=== PATIENT | female | born 1930 | race African-American/Black ===

== ENCOUNTER 2021-04-02 00:57 | Inpatient (IN) | payer MEDICARE, MEDICAID ==
[2021-04-02] VITALS (46 sets, daily range): BP systolic 73–138; BP diastolic 43–104
[~2021-04-02] VITALS: Ht 167.6 cm; Wt 100.9 kg
[~2021-04-02 00:57] MED LIST: APIX5TAB MT; ATOR40TA70 MT; CETI10TA6 MT; FAMO20TA8 PO; NITR0.4T49 SL; P20 MT; RISP4TAB31 PO
[2021-04-02] MEDS ORDERED: METHYLPREDNISOLONE SOD SUCC 125 MG/2 ML VIAL IV STA (01:01)
[2021-04-02] MEDS ORDERED: IPRATROPIUM BROMIDE (0.02%) 0.5MG/2.5ML NEB HHN STA (01:01)
[2021-04-02] MEDS ORDERED: MAGNESIUM 2 G PREMIX 50 ML IV STA (01:01)
[2021-04-02] MEDS ORDERED: ALBUTEROL (0.083%) 2.5MG/3ML NEB HHN STA (01:01)
[2021-04-02] MEDS ORDERED: DILTIAZEM HCL 5MG/ML 5ML VIAL IV ONE (01:15)
[2021-04-02] MEDS ORDERED: SODIUM CHLORIDE 0.9% 1,000 ML IV ONE (01:15)
[2021-04-02 01:16] LABS: HEMOGLOBIN 12.5 g/dL (12.0-16.0); MEAN CORPUSCULAR HEMOGLOBIN 27.2 pg (28.0-32.0); MEAN CORPUSCULAR VOLUME 86.6 fL (81.0-99.0); PLATELET 191 x1000/uL (130-400); RED BLOOD CELL COUNT 4.61 mill/uL (4.2-5.4); RED CELL DISTRIBUTION WIDTH 15.3 % (11.6-14.6)
[2021-04-02 01:21] LABS: CHLORIDE 106 mEq/L (98-107)
[2021-04-02] MEDS ORDERED: CEFTRIAXONE 1 G PREMIX 50 ML IV NR (01:30)
[2021-04-02] MEDS ORDERED: AZITHROMYCIN 500 MG in DEXT 5% WATER 250 ML IV SCH (02:00)
[2021-04-02] MEDS ORDERED: SODIUM CHLORIDE 0.9% 1,000 ML IV NR ×2 (02:15→14:45)
[2021-04-02] MEDS ORDERED: DOCUSATE SODIUM 100MG CAPSULE PO PRN (03:45)
[2021-04-02] MEDS ORDERED: NITROGLYCERIN 0.4MG TABLET SL SL PRN (03:45)
[2021-04-02] MEDS ORDERED: ACETAMINOPHEN 325MG TABLET PO PRN (03:45)
[2021-04-02] MEDS ORDERED: PIPERACILLIN/TAZ 3.375G PREMIX 50 ML IV SCH (03:45)
[2021-04-02] MEDS ORDERED: IPRATROPIUM/ALBUTEROL 0.5-3(2.5)MG/3ML NEB HHN PRN (03:45)
[2021-04-02] MEDS ORDERED: ENOXAPARIN 40MG/0.4ML SYR SUBCUT SCH (03:45)
[2021-04-02] MEDS ORDERED: LISI10TA26 MT (04:26)
[2021-04-02 04:30] LABS: BASOPHILS % 0.3 % (0.0-2.0); EOSINOPHILS % 0.1 % (0.0-5.0); HEMATOCRIT. 38.1 % (36.0-48.0); HEMOGLOBIN. 11.6 g/dL (12.0-16.0); LYMPHOCYTES % 11.7 % (20.0-50.0); MEAN CORPUSCULAR HEMOGLOBIN 26.8 pg (28.0-32.0); MEAN PLATELET VOLUME 9.9 fl (7.4-10.4); MONOCYTES % 6.5 % (2.0-8.0); NEUTROPHILS % 81.4 % (40.0-76.0); PLATELET 156 x1000/uL (130-400); RED BLOOD CELL COUNT 4.34 mill/uL (4.2-5.4); RED CELL DISTRIBUTION WIDTH 15.3 % (11.6-14.6)
[2021-04-02] MEDS ORDERED: *PATIENT'S OWN MEDICATION STORAGE XX SCH (05:00)
[2021-04-02 05:02] LABS: BG BASE EXCESS -0.4 mmol/L (-2.0-2.0); BG CARBOXYHEMOGLOBIN 0.3 % (0.5-1.5); BG DEOXYHEMOGLOBIN 0.6 % (0.0-5.0); BG FRACTION INSPIRED OXYGEN 100; BG HCO3 ACT 27.7 mmol/L (22.0-26.0); BG METHEMOGLOBIN 0.4 % (0.0-1.5); BG OXYGEN SATURATION 99.4 % (92.0-98.5); BG OXYHEMOGLOBIN 98.7 % (94.0-97.0); BG PH 7.261 (7.350-7.450); BG PO2 417.5 mmHg (75.0-100.0); BG SAMPLE SITE RIGHT RADIAL; BG TOTAL HEMOGLOBIN 11.9 g/dL (12.0-18.0); BG VENT MODE MASK - NRB
[2021-04-02] MEDS: METHYLPREDNISOLONE SOD SUCC 125 MG/2 ML VIAL IV SCH ×3 (05:56→22:23)
[2021-04-02] MEDS ORDERED: IPRATROPIUM/ALBUTEROL 0.5-3(2.5)MG/3ML NEB HHN SCH (08:00)
[2021-04-02] MEDS ORDERED: SODIUM CHLORIDE 0.9% 500 ML IV SCH ×2 (08:30→09:15)
[2021-04-02] MEDS: APIXABAN 2.5 MG TABLET PO SCH ×2 (09:27→17:14)
[2021-04-02] MEDS: FAMOTIDINE 20MG TABLET PO SCH (09:28)
[2021-04-02] MEDS: PIPERACILLIN/TAZOBACTAM 2.25 G in DEXTROSE 5% WATER 50 ML IV SCH ×3 (09:28→22:23)
[2021-04-02] MEDS: CETIRIZINE 10MG TABLET PO SCH (09:28)
[2021-04-02] MEDS: QUETIAPINE FUMARATE 50MG TABLET PO SCH (09:28)
[2021-04-02] MEDS ORDERED: DIGOXIN 500MCG/2ML AMP IV SCH (09:30)
[2021-04-02 09:33] LABS: BG BASE EXCESS -0.8 mmol/L (-2.0-2.0); BG CARBOXYHEMOGLOBIN 0.3 % (0.5-1.5); BG DEOXYHEMOGLOBIN 2.2 % (0.0-5.0); BG HCO3 ACT 26.2 mmol/L (22.0-26.0); BG METHEMOGLOBIN 0.6 % (0.0-1.5); BG OXYGEN SATURATION 97.8 % (92.0-98.5); BG OXYHEMOGLOBIN 96.9 % (94.0-97.0); BG PCO2 53.8 mmHg (35.0-45.0); BG PH 7.305 (7.350-7.450); BG PO2 114.6 mmHg (75.0-100.0); BG SAMPLE SITE RIGHT BRACHIAL; BG TOTAL HEMOGLOBIN 12.2 g/dL (12.0-18.0); BG VENT MODE MASK - BIPAP
[2021-04-02] MEDS: IPRATROPIUM BROMIDE (0.02%) 0.5MG/2.5ML NEB HHN SCH ×4 (11:53→21:03)
[2021-04-02] MEDS ORDERED: FLUT1BLS INH (12:18)
[2021-04-02] MEDS ORDERED: TIOT18CA3 INH (12:21)
[2021-04-02 15:38] LABS: BG BASE EXCESS -2.4 mmol/L (-2.0-2.0); BG CARBOXYHEMOGLOBIN 0.3 % (0.5-1.5); BG DEOXYHEMOGLOBIN 6.5 % (0.0-5.0); BG HCO3 ACT 24.8 mmol/L (22.0-26.0); BG METHEMOGLOBIN 0.3 % (0.0-1.5); BG OXYGEN SATURATION 93.5 % (92.0-98.5); BG OXYHEMOGLOBIN 92.9 % (94.0-97.0); BG PCO2 53.8 mmHg (35.0-45.0); BG PH 7.282 (7.350-7.450); BG PO2 74.8 mmHg (75.0-100.0); BG SAMPLE SITE RIGHT BRACHIAL; BG TOTAL HEMOGLOBIN 11.4 g/dL (12.0-18.0); BG VENT MODE ROOM AIR
[2021-04-02 15:56] LABS: CLARITY URINE CLEAR (CLEAR); COLOR URINE YELLOW (YELLOW); KETONES URINE NEGATIVE (NEGATIVE); LEUKOCYTE ESTERASE URINE NEGATIVE (NEGATIVE); NITRITE URINE NEGATIVE (NEGATIVE); OCCULT BLOOD URINE NEGATIVE (NEGATIVE); PROTEIN URINE TRACE (NEGATIVE); SPECIFIC GRAVITY URINE 1.019 (1.005-1.030); UROBILINOGEN URINE 0.2 E.U./dL (0.2-1.0)
[2021-04-02] MEDS: LEVOTHYROXINE SODIUM 25MCG TABLET PO SCH (17:22)
[2021-04-02] MEDS: ATORVASTATIN CALCIUM 40MG TABLET PO SCH (21:43)
[2021-04-03] VITALS (49 sets, daily range): BP systolic 52–162; BP diastolic 28–96
[2021-04-03] MEDS: IPRATROPIUM BROMIDE (0.02%) 0.5MG/2.5ML NEB HHN SCH ×6 (00:55→21:10)
[2021-04-03 05:20] LABS: HEMATOCRIT. 32.5 % (36.0-48.0); HEMOGLOBIN. 10.1 g/dL (12.0-16.0); MEAN CORPUSCULAR HEMOGLOBIN 26.9 pg (28.0-32.0); MEAN CORPUSCULAR VOLUME 87.1 fL (81.0-99.0); MEAN PLATELET VOLUME 10.1 fl (7.4-10.4); PLATELET 139 x1000/uL (130-400); RED BLOOD CELL COUNT 3.74 mill/uL (4.2-5.4); RED CELL DISTRIBUTION WIDTH 15.7 % (11.6-14.6)
[2021-04-03 05:43] LABS: T4 FREE 0.86 ng/dL (0.76-1.46)
[2021-04-03] MEDS: PIPERACILLIN/TAZOBACTAM 2.25 G in DEXTROSE 5% WATER 50 ML IV SCH ×4 (06:37→23:53)
[2021-04-03] MEDS: LEVOTHYROXINE SODIUM 25MCG TABLET PO SCH (06:38)
[2021-04-03] MEDS: METHYLPREDNISOLONE SOD SUCC 125 MG/2 ML VIAL IV SCH ×3 (06:43→22:00)
[2021-04-03 07:39] LABS: BG BASE EXCESS 1.3 mmol/L (-2.0-2.0); BG CARBOXYHEMOGLOBIN 0.3 % (0.5-1.5); BG DEOXYHEMOGLOBIN 5.2 % (0.0-5.0); BG HCO3 ACT 27.4 mmol/L (22.0-26.0); BG METHEMOGLOBIN 0.2 % (0.0-1.5); BG OXYGEN SATURATION 94.8 % (92.0-98.5); BG OXYHEMOGLOBIN 94.3 % (94.0-97.0); BG PCO2 50.8 mmHg (35.0-45.0); BG PO2 74.8 mmHg (75.0-100.0); BG SAMPLE SITE RIGHT BRACHIAL; BG TOTAL HEMOGLOBIN 10.4 g/dL (12.0-18.0); BG VENT MODE ROOM AIR
[2021-04-03] MEDS: CETIRIZINE 10MG TABLET PO SCH (10:02)
[2021-04-03] MEDS: QUETIAPINE FUMARATE 50MG TABLET PO SCH (10:02)
[2021-04-03] MEDS: FAMOTIDINE 20MG TABLET PO SCH (10:02)
[2021-04-03] MEDS: APIXABAN 2.5 MG TABLET PO SCH ×2 (10:02→17:38)
[2021-04-03 10:24] LABS: PLATELET ESTIMATE NORMAL
[2021-04-03] MEDS ORDERED: DILTIAZEM HCL 125 MG in DEXT 5% WATER 100 ML IV PRN (18:30)
[2021-04-03] MEDS: ATORVASTATIN CALCIUM 40MG TABLET PO SCH (21:20)
[2021-04-04] VITALS (48 sets, daily range): BP systolic 124–169; BP diastolic 54–142
[2021-04-04] MEDS: IPRATROPIUM BROMIDE (0.02%) 0.5MG/2.5ML NEB HHN SCH ×6 (01:20→20:45)
[2021-04-04] MEDS: METHYLPREDNISOLONE SOD SUCC 125 MG/2 ML VIAL IV SCH ×3 (06:30→22:07)
[2021-04-04] MEDS: PIPERACILLIN/TAZOBACTAM 2.25 G in DEXTROSE 5% WATER 50 ML IV SCH ×2 (06:30→13:30)
[2021-04-04] MEDS: LEVOTHYROXINE SODIUM 25MCG TABLET PO SCH (07:41)
[2021-04-04] MEDS: APIXABAN 2.5 MG TABLET PO SCH (08:37)
[2021-04-04] MEDS: CETIRIZINE 10MG TABLET PO SCH (08:37)
[2021-04-04] MEDS: QUETIAPINE FUMARATE 50MG TABLET PO SCH (08:37)
[2021-04-04] MEDS: FAMOTIDINE 20MG TABLET PO SCH (08:37)
[2021-04-04] MEDS: DOCUSATE SODIUM 100MG CAPSULE PO SCH ×2 (13:30→17:00)
[2021-04-04] MEDS: FUROSEMIDE 40MG/4ML VIAL IVP SCH ×2 (13:31→20:49)
[2021-04-04] MEDS: CEFTRIAXONE 2 G in DEXTROSE 5% WATER 50 ML IV SCH (14:55)
[2021-04-04] MEDS: APIXABAN 5 MG TABLET PO SCH (17:16)
[2021-04-04] MEDS: ATORVASTATIN CALCIUM 40MG TABLET PO SCH (20:49)
[2021-04-05] VITALS (47 sets, daily range): BP systolic 106–155; BP diastolic 53–95
[2021-04-05] MEDS: IPRATROPIUM BROMIDE (0.02%) 0.5MG/2.5ML NEB HHN SCH ×2 (00:29→04:20)
[2021-04-05 05:46] LABS: HEMATOCRIT. 38.4 % (36.0-48.0); HEMOGLOBIN. 11.9 g/dL (12.0-16.0); MEAN CORPUSCULAR HEMOGLOBIN 26.7 pg (28.0-32.0); MEAN CORPUSCULAR VOLUME 86.2 fL (81.0-99.0); MEAN PLATELET VOLUME 10.2 fl (7.4-10.4); PLATELET 159 x1000/uL (130-400); RED BLOOD CELL COUNT 4.46 mill/uL (4.2-5.4); RED CELL DISTRIBUTION WIDTH 15.3 % (11.6-14.6)
[2021-04-05 06:01] LABS: C REACTIVE PROTEIN QUANT 0.8 mg/L (0.0-3.0)
[2021-04-05] MEDS: METHYLPREDNISOLONE SOD SUCC 125 MG/2 ML VIAL IV SCH ×3 (06:44→22:27)
[2021-04-05] MEDS: LEVOTHYROXINE SODIUM 25MCG TABLET PO SCH (06:44)
[2021-04-05] MEDS: FUROSEMIDE 40MG/4ML VIAL IVP SCH ×2 (08:18→21:21)
[2021-04-05] MEDS: DOCUSATE SODIUM 100MG CAPSULE PO SCH ×2 (08:19→17:59)
[2021-04-05] MEDS: FAMOTIDINE 20MG TABLET PO SCH (08:19)
[2021-04-05] MEDS: QUETIAPINE FUMARATE 50MG TABLET PO SCH (08:19)
[2021-04-05] MEDS: CETIRIZINE 10MG TABLET PO SCH (08:19)
[2021-04-05] MEDS: APIXABAN 5 MG TABLET PO SCH ×2 (08:19→17:59)
[2021-04-05 09:57] LABS: PLATELET ESTIMATE NORMAL
[2021-04-05] MEDS: CEFTRIAXONE 2 G in DEXTROSE 5% WATER 50 ML IV SCH (13:56)
[2021-04-05] MEDS: ATORVASTATIN CALCIUM 40MG TABLET PO SCH (21:21)
[2021-04-06 00:05] VITALS: BP 128/81
[2021-04-06 04:00] VITALS: BP 112/94
[2021-04-06] MEDS: ALBUTEROL 6.7GM HFA INHALER ORI SCH ×6 (04:12→23:54)
[2021-04-06] MEDS: METHYLPREDNISOLONE SOD SUCC 125 MG/2 ML VIAL IV SCH ×2 (05:16→14:00)
[2021-04-06] MEDS: DILTIAZEM HCL 5MG/ML 5ML VIAL IV PRN (05:17)
[2021-04-06] MEDS: DILTIAZEM HCL 60MG TABLET PO SCH ×4 (05:44→23:54)
[2021-04-06 08:00] VITALS: BP 101/58
[2021-04-06] MEDS ORDERED: DIGOXIN 500MCG/2ML AMP IV NR (08:00)
[2021-04-06] MEDS: DOCUSATE SODIUM 100MG CAPSULE PO SCH ×2 (08:03→17:15)
[2021-04-06] MEDS: FAMOTIDINE 20MG TABLET PO SCH (08:03)
[2021-04-06] MEDS: QUETIAPINE FUMARATE 50MG TABLET PO SCH (08:03)
[2021-04-06] MEDS: CETIRIZINE 10MG TABLET PO SCH (08:03)
[2021-04-06] MEDS: LEVOTHYROXINE SODIUM 25MCG TABLET PO SCH (08:03)
[2021-04-06] MEDS: FUROSEMIDE 40MG/4ML VIAL IVP SCH ×2 (08:03→17:15)
[2021-04-06] MEDS: APIXABAN 5 MG TABLET PO SCH (08:03)
[2021-04-06 12:00] VITALS: BP 92/46
[2021-04-06 13:07] LABS: HEMATOCRIT. 43.4 % (36.0-48.0); HEMOGLOBIN. 13.8 g/dL (12.0-16.0); MEAN CORPUSCULAR HEMOGLOBIN 27.7 pg (28.0-32.0); MEAN CORPUSCULAR VOLUME 86.7 fL (81.0-99.0); MEAN PLATELET VOLUME 10.1 fl (7.4-10.4); PLATELET 154 x1000/uL (130-400); RED CELL DISTRIBUTION WIDTH 15.4 % (11.6-14.6)
[2021-04-06 13:11] LABS: CHLORIDE 95 mEq/L (98-107)
[2021-04-06] MEDS: CEFTRIAXONE 2 G in DEXTROSE 5% WATER 50 ML IV SCH (14:00)
[2021-04-06 15:21] LABS: PLATELET ESTIMATE NORMAL
[2021-04-06 16:00] VITALS: BP 93/56
[2021-04-06] MEDS ORDERED: METHYLPREDNISOLONE SOD SUCC 40 MG/ML VIAL IV SCH (16:45)
[2021-04-06] MEDS: METHYLPREDNISOLONE SOD SUCC 40 MG/ML VIAL IV SCH (17:14)
[2021-04-06] MEDS: APIXABAN 2.5 MG TABLET PO SCH (17:15)
[2021-04-06 20:00] VITALS: BP 118/58
[2021-04-06] MEDS: ATORVASTATIN CALCIUM 40MG TABLET PO SCH (20:02)
[2021-04-07] VITALS (8 sets, daily range): BP systolic 101–132; BP diastolic 59–80
[2021-04-07] MEDS: ALBUTEROL 6.7GM HFA INHALER ORI SCH ×5 (05:56→21:19)
[2021-04-07] MEDS: DILTIAZEM HCL 60MG TABLET PO SCH ×3 (05:56→17:18)
[2021-04-07] MEDS: LEVOTHYROXINE SODIUM 25MCG TABLET PO SCH (07:50)
[2021-04-07] MEDS: FUROSEMIDE 40MG/4ML VIAL IVP SCH (08:00)
[2021-04-07] MEDS: METHYLPREDNISOLONE SOD SUCC 40 MG/ML VIAL IV SCH (08:00)
[2021-04-07] MEDS: CETIRIZINE 10MG TABLET PO SCH (08:00)
[2021-04-07] MEDS: APIXABAN 2.5 MG TABLET PO SCH ×2 (08:00→17:18)
[2021-04-07] MEDS: QUETIAPINE FUMARATE 50MG TABLET PO SCH (08:00)
[2021-04-07] MEDS: DOCUSATE SODIUM 100MG CAPSULE PO SCH ×2 (08:00→17:19)
[2021-04-07] MEDS: FAMOTIDINE 20MG TABLET PO SCH (08:00)
[2021-04-07 10:08] LABS: CHLORIDE 93 mEq/L (98-107)
[2021-04-07 10:12] LABS: HEMOGLOBIN. 13.2 g/dL (12.0-16.0); MEAN CORPUSCULAR HEMOGLOBIN 27.7 pg (28.0-32.0); MEAN CORPUSCULAR VOLUME 86.2 fL (81.0-99.0); MEAN PLATELET VOLUME 9.5 fl (7.4-10.4); PLATELET 140 x1000/uL (130-400); RED BLOOD CELL COUNT 4.75 mill/uL (4.2-5.4); RED CELL DISTRIBUTION WIDTH 15.3 % (11.6-14.6)
[2021-04-07] MEDS ORDERED: DILT240C91 MT (11:14)
[2021-04-07] MEDS ORDERED: P20 MT (11:14)
[2021-04-07] MEDS ORDERED: FURO-151 MT (11:14)
[2021-04-07] MEDS ORDERED: POTA10CA42 MT (11:14)
[2021-04-07] MEDS: DILTIAZEM HCL 5MG/ML 5ML VIAL IV PRN (13:51)
[2021-04-07] MEDS: CEFTRIAXONE 2 G in DEXTROSE 5% WATER 50 ML IV SCH (14:07)
[2021-04-07] MEDS: PREDNISONE 20MG TABLET PO SCH (17:19)
[2021-04-07] MEDS ORDERED: DIGOXIN 500MCG/2ML AMP IV SCH (18:00)
[2021-04-07] MEDS ORDERED: DIGOXIN 500MCG/2ML AMP IV NR (19:00)
[2021-04-07 21:11] LABS: PLATELET ESTIMATE NORMAL
[2021-04-07] MEDS: ATORVASTATIN CALCIUM 40MG TABLET PO SCH (21:20)
[2021-04-08] VITALS: BP 118/75
[2021-04-08] MEDS: ALBUTEROL 6.7GM HFA INHALER ORI SCH ×5 (00:33→15:10)
[2021-04-08] MEDS: DILTIAZEM HCL 60MG TABLET PO SCH ×4 (00:33→11:40)
[2021-04-08 04:00] VITALS: BP 110/69
[2021-04-08 08:00] VITALS: BP 107/67
[2021-04-08] MEDS: FUROSEMIDE 40MG/4ML VIAL IVP SCH (08:08)
[2021-04-08] MEDS: QUETIAPINE FUMARATE 50MG TABLET PO SCH (08:09)
[2021-04-08] MEDS: LEVOTHYROXINE SODIUM 25MCG TABLET PO SCH (08:09)
[2021-04-08] MEDS: APIXABAN 2.5 MG TABLET PO SCH (08:09)
[2021-04-08] MEDS: DOCUSATE SODIUM 100MG CAPSULE PO SCH (08:09)
[2021-04-08] MEDS: PREDNISONE 20MG TABLET PO SCH (08:09)
[2021-04-08] MEDS: FAMOTIDINE 20MG TABLET PO SCH (08:09)
[2021-04-08] MEDS: CETIRIZINE 10MG TABLET PO SCH (08:10)
[2021-04-08] MEDS ORDERED: DIGO125T20 MT (11:18)
[2021-04-08 12:00] VITALS: BP 96/63
[2021-04-08] MEDS: CEFTRIAXONE 2 G in DEXTROSE 5% WATER 50 ML IV SCH (15:10)
[2021-04-08 16:00] VITALS: BP 103/64
[2021-04-08 17:25] VITALS: BP 113/64
== END 2021-04-08 17:50 | disposition home health service (06) | DRG 871 ==
LOC: ER 00:57 → MICUSO 02:29 → ENRESERV 03:25 → 7WST 04-05 23:37
PROVIDERS: ADMIT Internal Medicine Pulmonary Disease; ATTEND Internal Medicine Pulmonary Disease
PROC: 5A09357 Assistance with Respiratory Ventilation, Less than 24 Consecutive Hours, Continuous Positive Airway Pressure (ICD-10-PCS; 2021-04-02)
PROC: 5A09357 Assistance with Respiratory Ventilation, Less than 24 Consecutive Hours, Continuous Positive Airway Pressure (ICD-10-PCS; 2021-04-03)
PROC: 02HV33Z Insertion of Infusion Device into Superior Vena Cava, Percutaneous Approach (ICD-10-PCS; principal; 2021-04-07)
PROC: B548ZZA Ultrasonography of Superior Vena Cava, Guidance (ICD-10-PCS; 2021-04-07)
DX: A40.8 Other streptococcal sepsis (principal); J96.02 Acute respiratory failure with hypercapnia; J12.82 Pneumonia due to coronavirus disease 2019; U07.1 COVID-19; I50.33 Acute on chronic diastolic (congestive) heart failure; N17.0 Acute kidney failure with tubular necrosis; J96.01 Acute respiratory failure with hypoxia; E87.2 Acidosis; J45.901 Unspecified asthma with (acute) exacerbation; J98.11 Atelectasis; I13.0 Hypertensive heart and chronic kidney disease with heart failure and stage 1 through stage 4 chronic kidney disease, or unspecified chronic kidney disease; I48.0 Paroxysmal atrial fibrillation; D64.9 Anemia, unspecified; R74.01 Elevation of levels of liver transaminase levels; N63.10 Unspecified lump in the right breast, unspecified quadrant; N28.1 Cyst of kidney, acquired; I25.10 Atherosclerotic heart disease of native coronary artery without angina pectoris; I27.20 Pulmonary hypertension, unspecified; E03.9 Hypothyroidism, unspecified; J43.2 Centrilobular emphysema; I35.0 Nonrheumatic aortic (valve) stenosis; N18.9 Chronic kidney disease, unspecified; Z79.899 Other long term (current) drug therapy; Z79.01 Long term (current) use of anticoagulants; Z86.16 Personal history of COVID-19
CPT/HCPCS: 36415; 36600; 71045; 71250; 76937; 78580; 80048; 80053; 80076; 80162; 81003; 82375; 82550; 82728; 82805; 83036; 83605; 83615; 83735; 83880; 84145; 84439; 84443; 84484; 85025; 85027; 85379; 85651; 86140; 93005; 93306; 94640; 94644; 94660; 99291; A6261; C1725; J0456; J0696; J1160; J1940; J2543; J2920; J2930; J3475; J3490; J7030; J7040; J7060; J7512; U0003; U0005

== ENCOUNTER 2021-11-22 10:46 | Inpatient (IN) | payer MEDICARE, MEDICAID ==
[~2021-11-22] VITALS: Ht 167.6 cm; Wt 78.1 kg
[~2021-11-22 10:46] MED LIST changes: +DIGO125T20 MT; +DILT240C91 MT; +FLUT1BLS INH; +FURO-151 MT; +POTA10CA42 MT; +TIOT18CA3 INH
[2021-11-22] MEDS ORDERED: IPRATROPIUM BROMIDE (0.02%) 0.5MG/2.5ML NEB HHN STA (11:06)
[2021-11-22] MEDS ORDERED: ONDANSETRON HCL 4MG/2ML INJ IV STA (11:06)
[2021-11-22] MEDS ORDERED: SODIUM CHLORIDE 0.9% 1,000 ML IV ONE (11:15)
[2021-11-22] MEDS ORDERED: FAMOTIDINE 20MG/2ML VIAL IV ONE (11:15)
[2021-11-22] MEDS: ALBUTEROL (0.083%) 2.5MG/3ML NEB HHN SCH ×3 (11:30→12:30)
[2021-11-22] MEDS ORDERED: DILTIAZEM HCL 5MG/ML 5ML VIAL IV ONE (12:00)
[2021-11-22 12:48] LABS: BASOPHILS % 0.6 % (0.0-2.0); EOSINOPHILS % 1.1 % (0.0-5.0); HEMATOCRIT. 33.3 % (36.0-48.0); HEMOGLOBIN. 10.4 g/dL (12.0-16.0); LYMPHOCYTES % 15.5 % (20.0-50.0); MEAN CORPUSCULAR HEMOGLOBIN 26.3 pg (28.0-32.0); MEAN CORPUSCULAR VOLUME 84.2 fL (81.0-99.0); MEAN PLATELET VOLUME 9.4 fl (7.4-10.4); MONOCYTES % 9.7 % (2.0-8.0); NEUTROPHILS % 73.1 % (40.0-76.0); PLATELET 159 x1000/uL (130-400); RED BLOOD CELL COUNT 3.96 mill/uL (4.2-5.4)
[2021-11-22 12:49] LABS: CHLORIDE 107 mEq/L (98-107)
[2021-11-22] MEDS ORDERED: ONDANSETRON 4MG/5ML UDC PO ONE (14:00)
[2021-11-22] MEDS ORDERED: DILTIAZEM HCL 30MG TABLET PO SCH (14:00)
[2021-11-22 14:24] LABS: BG BASE EXCESS 1.4 mmol/L (-2.0-2.0); BG CARBOXYHEMOGLOBIN 0.3 % (0.5-1.5); BG DEOXYHEMOGLOBIN 11.8 % (0.0-5.0); BG FRACTION INSPIRED OXYGEN 21; BG METHEMOGLOBIN 0.1 % (0.0-1.5); BG OXYGEN SATURATION 88.2 % (92.0-98.5); BG OXYHEMOGLOBIN 87.8 % (94.0-97.0); BG PCO2 53.7 mmHg (35.0-45.0); BG PH 7.335 (7.350-7.450); BG SAMPLE SITE RIGHT RADIAL; BG VENT MODE ROOM AIR
[2021-11-22] MEDS ORDERED: DIGOXIN 500MCG/2ML AMP IV NR (14:45)
[2021-11-22] MEDS ORDERED: PHENYLEPHRINE 50 MG in DEXT 5% WATER 245 ML IV PRN (14:45)
[2021-11-22] MEDS ORDERED: DILTIAZEM HCL 125 MG in DEXT 5% WATER 100 ML IV PRN (14:45)
[2021-11-22] MEDS: DILTIAZEM HCL 125 MG in DEXT 5% WATER 100 ML IV PRN (15:27)
[2021-11-22] MEDS: PHENYLEPHRINE 50 MG in DEXT 5% WATER 245 ML IV PRN (15:34)
[2021-11-22] MEDS: CARVEDILOL 12.5MG TABLET PO SCH (21:25)
[2021-11-22] MEDS: IPRATROPIUM/ALBUTEROL 0.5-3(2.5)MG/3ML NEB HHN SCH (22:45)
[2021-11-23] VITALS (49 sets, daily range): BP systolic 97–166; BP diastolic 40–94
[2021-11-23] MEDS: IPRATROPIUM/ALBUTEROL 0.5-3(2.5)MG/3ML NEB HHN SCH ×5 (03:53→21:53)
[2021-11-23] MEDS ORDERED: SUCCINYLCHOLINE CHLORIDE 200MG/10ML IV ONE ×2 (08:15→08:22)
[2021-11-23] MEDS ORDERED: PROPOFOL 10MG/ML 100ML 100 ML IV ONE (08:15)
[2021-11-23] MEDS ORDERED: FENTANYL CITRATE/PF 50MCG/ML 2ML VIAL IV ONE (08:15)
[2021-11-23] MEDS ORDERED: ETOMIDATE 2MG/ML 10ML VIAL IV ONE ×2 (08:15→08:22)
[2021-11-23] MEDS ORDERED: EPINEPHRINE 0.1MG/ML (1:10,000) 10ML SYR ONE (08:26)
[2021-11-23] MEDS: CARVEDILOL 12.5MG TABLET PO SCH ×2 (08:33→20:52)
[2021-11-23] MEDS: PHENYLEPHRINE 50 MG in DEXT 5% WATER 245 ML IV PRN (08:33)
[2021-11-23] MEDS ORDERED: NOREPINEPHRINE 8MG/250ML PMX 250 ML IV STA (08:39)
[2021-11-23] MEDS ORDERED: SODIUM CHLORIDE 0.9% 1,000 ML IV ONE (08:45)
[2021-11-23] MEDS ORDERED: MIDAZOLAM 100MG/100ML PMX 100 ML IV PRN (09:00)
[2021-11-23] MEDS ORDERED: FENTANYL CITRATE/PF 1,000 MCG in SODIUM CHLORIDE 0.9% 80 ML IV PRN (09:00)
[2021-11-23] MEDS ORDERED: FENTANYL CITRATE 2,500 MCG in SODIUM CHLORIDE 0.9% 200 ML IV PRN (09:15)
[2021-11-23 09:21] LABS: BG BASE EXCESS 0.2 mmol/L (-2.0-2.0); BG CARBOXYHEMOGLOBIN 0.3 % (0.5-1.5); BG DEOXYHEMOGLOBIN 0.1 % (0.0-5.0); BG HCO3 ACT 30.5 mmol/L (22.0-26.0); BG METHEMOGLOBIN 0.3 % (0.0-1.5); BG OXYGEN SATURATION 99.9 % (92.0-98.5); BG OXYHEMOGLOBIN 99.3 % (94.0-97.0); BG PCO2 84.8 mmHg (35.0-45.0); BG PH 7.174 (7.350-7.450); BG PO2 562.1 mmHg (75.0-100.0); BG SAMPLE SITE RIGHT RADIAL; BG TOTAL HEMOGLOBIN 11.5 g/dL (12.0-18.0); BG VENT MODE VENT - AC
[2021-11-23 10:12] LABS: HEMATOCRIT. 32.2 % (36.0-48.0); HEMOGLOBIN. 9.8 g/dL (12.0-16.0); MEAN CORPUSCULAR HEMOGLOBIN 26.3 pg (28.0-32.0); MEAN CORPUSCULAR VOLUME 86.3 fL (81.0-99.0); MEAN PLATELET VOLUME 9.4 fl (7.4-10.4); PLATELET 165 x1000/uL (130-400); RED BLOOD CELL COUNT 3.74 mill/uL (4.2-5.4)
[2021-11-23 10:20] LABS: CHLORIDE 107 mEq/L (98-107)
[2021-11-23] MEDS: MIDAZOLAM HCL 100 MG in SODIUM CHLORIDE 0.9% 100 ML IV PRN ×2 (10:26→20:10)
[2021-11-23 10:27] LABS: *AMPHETAMINES SCREEN URINE NEGATIVE (NEGATIVE); *BARBITURATES SCREEN URINE NEGATIVE (NEGATIVE); *BENZODIAZEPINES SCREEN URINE NEGATIVE (NEGATIVE); *COCAINE SCREEN URINE NEGATIVE (NEGATIVE); LDL CHOLESTEROL 55 mg/dL (5-100); METHADONE URINE SCREEN NEGATIVE (NEGATIVE); OPIATES URINE SCREEN NEGATIVE (NEGATIVE); PHENCYCLIDINE URINE SCREEN NEGATIVE (NEGATIVE); PHOSPHORUS 4.3 mg/dL (2.5-4.9)
[2021-11-23] MEDS: FENTANYL CITRATE/PF 2,500 MCG in SODIUM CHLORIDE 0.9% 200 ML IV PRN ×2 (10:27→18:37)
[2021-11-23 10:28] LABS: CANNABINOID URINE SCREEN NEGATIVE (NEGATIVE); CREATINE KINASE 199 IU/L (26-192)
[2021-11-23 10:29] LABS: HDL CHOLESTEROL 51 mg/dL (40-59)
[2021-11-23] MEDS: APIXABAN 5 MG TABLET PO SCH ×2 (10:41→18:00)
[2021-11-23 11:02] LABS: PLATELET ESTIMATE NORMAL
[2021-11-23] MEDS ORDERED: SODIUM POLYSTYRENE SULFONATE 15 G/60 ML BOT PO NR (11:15)
[2021-11-23] MEDS: ACETAMINOPHEN 325MG TABLET PO PRN (12:11)
[2021-11-23] MEDS: NOREPINEPHRINE 8 MG in DEXTROSE 5% WATER 250 ML IV PRN (12:28)
[2021-11-23] MEDS ORDERED: BUSPIRONE HCL 10MG TABLET PO PRN (12:45)
[2021-11-23] MEDS ORDERED: DOPAMINE 800MG PREMIX (DOUBLE) 250 ML IV PRN (12:45)
[2021-11-23] MEDS ORDERED: PIPERACILLIN/TAZOBACTAM 3.375 G in DEXTROSE 5% WATER 50 ML IV SCH (13:00)
[2021-11-23] MEDS: PIPERACILLIN/TAZOBACTAM 3.375 G in DEXTROSE 5% WATER 50 ML IV SCH ×2 (15:40→22:02)
[2021-11-23 16:10] LABS: CLARITY URINE CLEAR (CLEAR); COLOR URINE YELLOW (YELLOW); KETONES URINE NEGATIVE (NEGATIVE); LEUKOCYTE ESTERASE URINE NEGATIVE (NEGATIVE); NITRITE URINE NEGATIVE (NEGATIVE); OCCULT BLOOD URINE TRACE (NEGATIVE); PROTEIN URINE 2+ (NEGATIVE); SPECIFIC GRAVITY URINE 1.016 (1.005-1.030)
[2021-11-23 17:43] LABS: HEMATOCRIT 38.3 % (36.0-48.0); HEMOGLOBIN 11.5 g/dL (12.0-16.0); MEAN CORPUSCULAR HEMOGLOBIN 25.7 pg (28.0-32.0); MEAN CORPUSCULAR VOLUME 85.9 fL (81.0-99.0); PLATELET 145 x1000/uL (130-400); RED BLOOD CELL COUNT 4.46 mill/uL (4.2-5.4); RED CELL DISTRIBUTION WIDTH 16.1 % (11.6-14.6)
[2021-11-23 22:50] LABS: CHLORIDE 105 mEq/L (98-107)
[2021-11-24] VITALS (87 sets, daily range): BP systolic 76–143; BP diastolic 44–96
[2021-11-24] MEDS: FENTANYL CITRATE/PF 2,500 MCG in SODIUM CHLORIDE 0.9% 200 ML IV PRN ×3 (02:03→17:08)
[2021-11-24] MEDS: IPRATROPIUM/ALBUTEROL 0.5-3(2.5)MG/3ML NEB HHN SCH ×4 (02:06→20:52)
[2021-11-24] MEDS: PIPERACILLIN/TAZOBACTAM 3.375 G in DEXTROSE 5% WATER 50 ML IV SCH ×3 (06:08→21:16)
[2021-11-24 06:09] LABS: CHLORIDE 108 mEq/L (98-107)
[2021-11-24 06:23] LABS: INR 1.1; PARTIAL THROMBOPLASTIN TIME 30.5 sec (23.4-31.0); PROTHROMBIN TIME 11.6 sec (9.6-11.0)
[2021-11-24] MEDS: CARVEDILOL 12.5MG TABLET PO SCH ×2 (08:03→20:43)
[2021-11-24] MEDS: MIDAZOLAM HCL 100 MG in SODIUM CHLORIDE 0.9% 100 ML IV PRN ×2 (08:19→17:06)
[2021-11-24] MEDS: APIXABAN 5 MG TABLET PO SCH ×2 (08:19→16:35)
[2021-11-24 09:13] LABS: BG BASE EXCESS 1.5 mmol/L (-2.0-2.0); BG CARBOXYHEMOGLOBIN 0.8 % (0.5-1.5); BG DEOXYHEMOGLOBIN 1.2 % (0.0-5.0); BG FRACTION INSPIRED OXYGEN 30; BG HCO3 ACT 24.8 mmol/L (22.0-26.0); BG METHEMOGLOBIN 0.1 % (0.0-1.5); BG OXYGEN SATURATION 98.8 % (92.0-98.5); BG OXYHEMOGLOBIN 97.9 % (94.0-97.0); BG PCO2 34.5 mmHg (35.0-45.0); BG PH 7.474 (7.350-7.450); BG PO2 128.8 mmHg (75.0-100.0); BG SAMPLE SITE RIGHT RADIAL; BG TOTAL HEMOGLOBIN 12.1 g/dL (12.0-18.0); BG VENT MODE VENT - AC
[2021-11-24] MEDS: NOREPINEPHRINE 8 MG in DEXTROSE 5% WATER 250 ML IV PRN (10:02)
[2021-11-24] MEDS: SODIUM CHLORIDE 0.45% 1,000 ML IV SCH (10:03)
[2021-11-24] MEDS ORDERED: VANCOMYCIN 1500MG in DEXTROSE 5% WATER 250ML IV NR (13:00)
[2021-11-24 16:15] LABS: HEMATOCRIT. 38.7 % (36.0-48.0); HEMOGLOBIN. 11.8 g/dL (12.0-16.0); MEAN CORPUSCULAR HEMOGLOBIN 26.1 pg (28.0-32.0); MEAN CORPUSCULAR VOLUME 85.2 fL (81.0-99.0); MEAN PLATELET VOLUME 9.4 fl (7.4-10.4); PLATELET 167 x1000/uL (130-400); RED BLOOD CELL COUNT 4.54 mill/uL (4.2-5.4); RED CELL DISTRIBUTION WIDTH 16.1 % (11.6-14.6)
[2021-11-24 16:19] LABS: CHLORIDE 106 mEq/L (98-107)
[2021-11-24 16:24] LABS: INR 1.2; PARTIAL THROMBOPLASTIN TIME 33.3 sec (23.4-31.0); PROTHROMBIN TIME 12.3 sec (9.6-11.0)
[2021-11-24 18:14] LABS: PLATELET ESTIMATE NORMAL
[2021-11-24 21:40] LABS: HEMATOCRIT. 36.8 % (36.0-48.0); HEMOGLOBIN. 11.5 g/dL (12.0-16.0); MEAN CORPUSCULAR HEMOGLOBIN 26.4 pg (28.0-32.0); MEAN CORPUSCULAR VOLUME 84.8 fL (81.0-99.0); MEAN PLATELET VOLUME 9.4 fl (7.4-10.4); PLATELET 132 x1000/uL (130-400); RED BLOOD CELL COUNT 4.34 mill/uL (4.2-5.4); RED CELL DISTRIBUTION WIDTH 16.2 % (11.6-14.6)
[2021-11-24 21:49] LABS: CHLORIDE 106 mEq/L (98-107)
[2021-11-24 21:52] LABS: INR 1.2; PARTIAL THROMBOPLASTIN TIME 30.8 sec (23.4-31.0); PROTHROMBIN TIME 12.7 sec (9.6-11.0)
[2021-11-24 22:56] LABS: PLATELET ESTIMATE NORMAL
[2021-11-24] MEDS ORDERED: PHENYLEPHRINE 100 MG in DEXT 5% WATER 240 ML IV PRN (23:00)
[2021-11-25] VITALS (100 sets, daily range): BP systolic 55–175; BP diastolic 30–101
[2021-11-25] MEDS: IPRATROPIUM/ALBUTEROL 0.5-3(2.5)MG/3ML NEB HHN SCH ×4 (00:33→20:00)
[2021-11-25] MEDS: FENTANYL CITRATE/PF 2,500 MCG in SODIUM CHLORIDE 0.9% 200 ML IV PRN ×2 (00:38→09:34)
[2021-11-25 01:03] LABS: HEMATOCRIT. 33.7 % (36.0-48.0); HEMOGLOBIN. 10.8 g/dL (12.0-16.0); MEAN CORPUSCULAR HEMOGLOBIN 26.5 pg (28.0-32.0); MEAN CORPUSCULAR VOLUME 82.8 fL (81.0-99.0); MEAN PLATELET VOLUME 9.7 fl (7.4-10.4); PLATELET 173 x1000/uL (130-400); RED BLOOD CELL COUNT 4.07 mill/uL (4.2-5.4); RED CELL DISTRIBUTION WIDTH 16.2 % (11.6-14.6)
[2021-11-25] MEDS: NOREPINEPHRINE 32 MG in DEXT 5% WATER 218 ML IV PRN (02:06)
[2021-11-25 02:33] LABS: INR 1.2; PARTIAL THROMBOPLASTIN TIME 44.9 sec (23.4-31.0); PROTHROMBIN TIME 12.7 sec (9.6-11.0)
[2021-11-25] MEDS: MIDAZOLAM HCL 100 MG in SODIUM CHLORIDE 0.9% 100 ML IV PRN (04:14)
[2021-11-25 04:24] LABS: PLATELET ESTIMATE NORMAL
[2021-11-25 06:06] LABS: INR 1.2; PARTIAL THROMBOPLASTIN TIME 41.3 sec (23.4-31.0); PROTHROMBIN TIME 12.4 sec (9.6-11.0)
[2021-11-25 06:07] LABS: HEMATOCRIT. 34.5 % (36.0-48.0); HEMOGLOBIN. 10.7 g/dL (12.0-16.0); MEAN CORPUSCULAR HEMOGLOBIN 26.1 pg (28.0-32.0); MEAN CORPUSCULAR VOLUME 84.2 fL (81.0-99.0); MEAN PLATELET VOLUME 10.6 fl (7.4-10.4); PLATELET 202 x1000/uL (130-400)
[2021-11-25 06:57] LABS: NUCLEATED RED BLOOD CELLS 2 /100 WBC; PLATELET ESTIMATE NORMAL
[2021-11-25 09:05] LABS: BG BASE EXCESS 0.3 mmol/L (-2.0-2.0); BG CARBOXYHEMOGLOBIN 0.3 % (0.5-1.5); BG DEOXYHEMOGLOBIN 2.8 % (0.0-5.0); BG HCO3 ACT 22.6 mmol/L (22.0-26.0); BG METHEMOGLOBIN 0.3 % (0.0-1.5); BG OXYGEN SATURATION 97.2 % (92.0-98.5); BG OXYHEMOGLOBIN 96.6 % (94.0-97.0); BG PCO2 29.5 mmHg (35.0-45.0); BG PH 7.503 (7.350-7.450); BG SAMPLE SITE RIGHT RADIAL; BG TOTAL HEMOGLOBIN 11.3 g/dL (12.0-18.0); BG VENT MODE VENT - AC
[2021-11-25] MEDS: APIXABAN 5 MG TABLET PO SCH ×2 (09:32→16:39)
[2021-11-25] MEDS: PIPERACILLIN/TAZOBACTAM 3.375 G in DEXTROSE 5% WATER 50 ML IV SCH ×3 (09:32→22:08)
[2021-11-25] MEDS: CARVEDILOL 12.5MG TABLET PO SCH ×2 (09:33→20:39)
[2021-11-25] MEDS: SODIUM CHLORIDE 0.45% 1,000 ML IV SCH (09:33)
[2021-11-25 10:08] LABS: INR 1.2; PARTIAL THROMBOPLASTIN TIME 45.9 sec (23.4-31.0); PROTHROMBIN TIME 12.5 sec (9.6-11.0)
[2021-11-25] MEDS ORDERED: VANCOMYCIN 1G PREMIX 200 ML IV SCH (12:00)
[2021-11-25 13:23] LABS: INR 1.2; PARTIAL THROMBOPLASTIN TIME 39.5 sec (23.4-31.0); PROTHROMBIN TIME 12.5 sec (9.6-11.0)
[2021-11-25] MEDS ORDERED: VANCOMYCIN 750 MG in DEXT 5% WATER 250 ML IV SCH (15:00)
[2021-11-25] MEDS: DILTIAZEM HCL 125 MG in DEXT 5% WATER 100 ML IV PRN (21:39)
[2021-11-25] MEDS: ACETAMINOPHEN 325MG TABLET PO PRN (22:09)
[2021-11-25 22:13] LABS: HEMATOCRIT. 32.8 % (36.0-48.0); HEMOGLOBIN. 10.6 g/dL (12.0-16.0); MEAN CORPUSCULAR HEMOGLOBIN 26.6 pg (28.0-32.0); MEAN CORPUSCULAR VOLUME 82.7 fL (81.0-99.0); MEAN PLATELET VOLUME 9.6 fl (7.4-10.4); PLATELET 164 x1000/uL (130-400); RED BLOOD CELL COUNT 3.97 mill/uL (4.2-5.4); RED CELL DISTRIBUTION WIDTH 16.6 % (11.6-14.6)
[2021-11-25 22:23] LABS: CHLORIDE 107 mEq/L (98-107); INR 1.2; PARTIAL THROMBOPLASTIN TIME 52.1 sec (23.4-31.0); PROTHROMBIN TIME 12.6 sec (9.6-11.0)
[2021-11-25 22:30] LABS: PHOSPHORUS 2.8 mg/dL (2.5-4.9)
[2021-11-25 22:33] LABS: CREATINE KINASE 162 IU/L (26-192)
[2021-11-25 23:28] LABS: PLATELET ESTIMATE NORMAL
[2021-11-26] VITALS (96 sets, daily range): BP systolic 83–151; BP diastolic 43–111
[2021-11-26 00:31] LABS: BASOPHILS % 0.6 % (0.0-2.0); EOSINOPHILS % 1.5 % (0.0-5.0); HEMATOCRIT. 32.5 % (36.0-48.0); HEMOGLOBIN. 10.4 g/dL (12.0-16.0); LYMPHOCYTES % 12.9 % (20.0-50.0); MEAN CORPUSCULAR HEMOGLOBIN 26.3 pg (28.0-32.0); MEAN CORPUSCULAR VOLUME 82.6 fL (81.0-99.0); MEAN PLATELET VOLUME 8.9 fl (7.4-10.4); MONOCYTES % 8.4 % (2.0-8.0); NEUTROPHILS % 76.6 % (40.0-76.0); PLATELET 171 x1000/uL (130-400); RED BLOOD CELL COUNT 3.93 mill/uL (4.2-5.4); RED CELL DISTRIBUTION WIDTH 16.1 % (11.6-14.6)
[2021-11-26 00:38] LABS: CHLORIDE 107 mEq/L (98-107)
[2021-11-26 00:44] LABS: INR 1.2; PARTIAL THROMBOPLASTIN TIME 52.2 sec (23.4-31.0); PROTHROMBIN TIME 12.6 sec (9.6-11.0)
[2021-11-26 00:46] LABS: CREATINE KINASE 150 IU/L (26-192)
[2021-11-26] MEDS: IPRATROPIUM/ALBUTEROL 0.5-3(2.5)MG/3ML NEB HHN SCH ×5 (02:00→21:32)
[2021-11-26] MEDS: PIPERACILLIN/TAZOBACTAM 3.375 G in DEXTROSE 5% WATER 50 ML IV SCH ×3 (06:00→21:10)
[2021-11-26] MEDS: SODIUM CHLORIDE 0.45% 1,000 ML IV SCH (06:29)
[2021-11-26 07:20] LABS: CHLORIDE 107 mEq/L (98-107)
[2021-11-26 07:35] LABS: CREATINE KINASE 141 IU/L (26-192)
[2021-11-26 07:59] LABS: INR 1.1; PARTIAL THROMBOPLASTIN TIME 55.6 sec (23.4-31.0); PROTHROMBIN TIME 12.2 sec (9.6-11.0)
[2021-11-26 08:01] LABS: BASOPHILS % 0.6 % (0.0-2.0); EOSINOPHILS % 1.3 % (0.0-5.0); HEMATOCRIT. 30.9 % (36.0-48.0); HEMOGLOBIN. 10.1 g/dL (12.0-16.0); LYMPHOCYTES % 13.2 % (20.0-50.0); MEAN CORPUSCULAR HEMOGLOBIN 26.9 pg (28.0-32.0); MEAN CORPUSCULAR VOLUME 82.2 fL (81.0-99.0); MONOCYTES % 8.6 % (2.0-8.0); NEUTROPHILS % 76.3 % (40.0-76.0); PLATELET 158 x1000/uL (130-400); RED BLOOD CELL COUNT 3.76 mill/uL (4.2-5.4); RED CELL DISTRIBUTION WIDTH 16.4 % (11.6-14.6)
[2021-11-26] MEDS: APIXABAN 5 MG TABLET PO SCH ×2 (08:12→16:23)
[2021-11-26] MEDS: CARVEDILOL 12.5MG TABLET PO SCH ×2 (08:12→21:10)
[2021-11-26] MEDS: ACETAMINOPHEN 325MG TABLET PO PRN ×2 (12:17→23:28)
[2021-11-26] MEDS: VANCOMYCIN 1G PREMIX 200 ML IV SCH (12:20)
[2021-11-26 13:21] LABS: BASOPHILS % 0.7 % (0.0-2.0); EOSINOPHILS % 1.7 % (0.0-5.0); HEMATOCRIT. 32.3 % (36.0-48.0); HEMOGLOBIN. 10.2 g/dL (12.0-16.0); LYMPHOCYTES % 14.4 % (20.0-50.0); MEAN CORPUSCULAR VOLUME 82.8 fL (81.0-99.0); MEAN PLATELET VOLUME 8.8 fl (7.4-10.4); MONOCYTES % 9.9 % (2.0-8.0); NEUTROPHILS % 73.3 % (40.0-76.0); PLATELET 164 x1000/uL (130-400); RED BLOOD CELL COUNT 3.91 mill/uL (4.2-5.4); RED CELL DISTRIBUTION WIDTH 16.3 % (11.6-14.6)
[2021-11-26 13:31] LABS: CHLORIDE 106 mEq/L (98-107)
[2021-11-26 13:36] LABS: PHOSPHORUS 2.9 mg/dL (2.5-4.9)
[2021-11-26 13:38] LABS: INR 1.1; PARTIAL THROMBOPLASTIN TIME 52.5 sec (23.4-31.0)
[2021-11-26 13:41] LABS: CREATINE KINASE 142 IU/L (26-192)
[2021-11-26] MEDS: NOREPINEPHRINE 32 MG in DEXT 5% WATER 218 ML IV PRN (16:23)
[2021-11-26 20:37] LABS: BASOPHILS % 0.7 % (0.0-2.0); EOSINOPHILS % 2.1 % (0.0-5.0); HEMATOCRIT. 29.7 % (36.0-48.0); HEMOGLOBIN. 9.5 g/dL (12.0-16.0); LYMPHOCYTES % 16.3 % (20.0-50.0); MEAN CORPUSCULAR HEMOGLOBIN 26.4 pg (28.0-32.0); MEAN CORPUSCULAR VOLUME 82.6 fL (81.0-99.0); MEAN PLATELET VOLUME 9.4 fl (7.4-10.4); MONOCYTES % 10.3 % (2.0-8.0); NEUTROPHILS % 70.6 % (40.0-76.0); PLATELET 157 x1000/uL (130-400); RED BLOOD CELL COUNT 3.59 mill/uL (4.2-5.4); RED CELL DISTRIBUTION WIDTH 16.2 % (11.6-14.6)
[2021-11-26 20:46] LABS: CHLORIDE 108 mEq/L (98-107)
[2021-11-26 20:49] LABS: INR 1.1; PARTIAL THROMBOPLASTIN TIME 51.4 sec (23.4-31.0); PROTHROMBIN TIME 11.9 sec (9.6-11.0)
[2021-11-26 20:51] LABS: PHOSPHORUS 2.9 mg/dL (2.5-4.9)
[2021-11-26 20:53] LABS: CREATINE KINASE 117 IU/L (26-192)
[2021-11-27] VITALS (92 sets, daily range): BP systolic 79–160; BP diastolic 29–98
[2021-11-27] MEDS: PHENYLEPHRINE 50 MG in DEXT 5% WATER 245 ML IV PRN ×2 (00:28→21:46)
[2021-11-27 00:56] LABS: BASOPHILS % 0.5 % (0.0-2.0); EOSINOPHILS % 1.9 % (0.0-5.0); HEMOGLOBIN. 9.9 g/dL (12.0-16.0); LYMPHOCYTES % 14.6 % (20.0-50.0); MEAN CORPUSCULAR HEMOGLOBIN 26.4 pg (28.0-32.0); MEAN CORPUSCULAR VOLUME 82.5 fL (81.0-99.0); MEAN PLATELET VOLUME 8.9 fl (7.4-10.4); PLATELET 147 x1000/uL (130-400); RED BLOOD CELL COUNT 3.75 mill/uL (4.2-5.4); RED CELL DISTRIBUTION WIDTH 16.5 % (11.6-14.6)
[2021-11-27 01:06] LABS: INR 1.1; PARTIAL THROMBOPLASTIN TIME 49.3 sec (23.4-31.0); PROTHROMBIN TIME 11.7 sec (9.6-11.0)
[2021-11-27 01:11] LABS: CREATINE KINASE 114 IU/L (26-192)
[2021-11-27] MEDS: IPRATROPIUM/ALBUTEROL 0.5-3(2.5)MG/3ML NEB HHN SCH ×4 (01:28→20:34)
[2021-11-27 02:05] LABS: CHLORIDE 108 mEq/L (98-107)
[2021-11-27] MEDS: SODIUM CHLORIDE 0.45% 1,000 ML IV SCH ×2 (05:31→18:03)
[2021-11-27] MEDS: PIPERACILLIN/TAZOBACTAM 3.375 G in DEXTROSE 5% WATER 50 ML IV SCH ×3 (05:33→21:45)
[2021-11-27 07:07] LABS: HEMATOCRIT. 28.5 % (36.0-48.0); HEMOGLOBIN. 9.2 g/dL (12.0-16.0); MEAN CORPUSCULAR HEMOGLOBIN 26.9 pg (28.0-32.0); MEAN CORPUSCULAR VOLUME 82.8 fL (81.0-99.0); MEAN PLATELET VOLUME 9.7 fl (7.4-10.4); PLATELET 149 x1000/uL (130-400); RED BLOOD CELL COUNT 3.44 mill/uL (4.2-5.4); RED CELL DISTRIBUTION WIDTH 16.3 % (11.6-14.6)
[2021-11-27 07:25] LABS: PARTIAL THROMBOPLASTIN TIME 43.4 sec (23.4-31.0); PROTHROMBIN TIME 11.2 sec (9.6-11.0)
[2021-11-27] MEDS: CARVEDILOL 12.5MG TABLET PO SCH ×2 (08:04→21:00)
[2021-11-27] MEDS: APIXABAN 5 MG TABLET PO SCH ×2 (08:04→18:00)
[2021-11-27 08:12] LABS: CHLORIDE 107 mEq/L (98-107)
[2021-11-27 08:21] LABS: PHOSPHORUS 2.9 mg/dL (2.5-4.9)
[2021-11-27 08:25] LABS: CREATINE KINASE 102 IU/L (26-192)
[2021-11-27 10:07] LABS: NUCLEATED RED BLOOD CELLS 1 /100 WBC; PLATELET ESTIMATE NORMAL
[2021-11-27] MEDS: VANCOMYCIN 1G PREMIX 200 ML IV SCH (12:15)
[2021-11-27 12:16] LABS: BASOPHILS % 0.4 % (0.0-2.0); EOSINOPHILS % 2.4 % (0.0-5.0); HEMATOCRIT. 31.1 % (36.0-48.0); HEMOGLOBIN. 9.6 g/dL (12.0-16.0); LYMPHOCYTES % 14.4 % (20.0-50.0); MEAN CORPUSCULAR HEMOGLOBIN 26.1 pg (28.0-32.0); MEAN CORPUSCULAR VOLUME 84.2 fL (81.0-99.0); MONOCYTES % 11.4 % (2.0-8.0); NEUTROPHILS % 71.4 % (40.0-76.0); PLATELET 141 x1000/uL (130-400); RED BLOOD CELL COUNT 3.69 mill/uL (4.2-5.4); RED CELL DISTRIBUTION WIDTH 16.7 % (11.6-14.6)
[2021-11-27 12:19] LABS: CHLORIDE 107 mEq/L (98-107)
[2021-11-27 12:25] LABS: PHOSPHORUS 2.8 mg/dL (2.5-4.9)
[2021-11-27 12:26] LABS: CREATINE KINASE 95 IU/L (26-192)
[2021-11-27 12:29] LABS: PARTIAL THROMBOPLASTIN TIME 38.3 sec (23.4-31.0); PROTHROMBIN TIME 11.1 sec (9.6-11.0)
[2021-11-27 13:30] LABS: BG BASE EXCESS -1.8 mmol/L (-2.0-2.0); BG CARBOXYHEMOGLOBIN 0.3 % (0.5-1.5); BG FRACTION INSPIRED OXYGEN 30; BG HCO3 ACT 23.3 mmol/L (22.0-26.0); BG METHEMOGLOBIN 0.2 % (0.0-1.5); BG OXYHEMOGLOBIN 95.5 % (94.0-97.0); BG PCO2 41.2 mmHg (35.0-45.0); BG PH 7.371 (7.350-7.450); BG PO2 90.2 mmHg (75.0-100.0); BG SAMPLE SITE RIGHT RADIAL; BG TOTAL HEMOGLOBIN 10.4 g/dL (12.0-18.0); BG VENT MODE VENT - CPAP
[2021-11-27] MEDS: ACETAMINOPHEN 325MG TABLET PO PRN (21:43)
[2021-11-27] MEDS: DILTIAZEM HCL 125 MG in DEXT 5% WATER 100 ML IV PRN (23:00)
[2021-11-28] VITALS (146 sets, daily range): BP systolic 41–180; BP diastolic 19–107
[2021-11-28] MEDS: IPRATROPIUM/ALBUTEROL 0.5-3(2.5)MG/3ML NEB HHN SCH ×4 (00:26→20:52)
[2021-11-28 07:15] LABS: PHOSPHORUS 2.6 mg/dL (2.5-4.9)
[2021-11-28] MEDS: PIPERACILLIN/TAZOBACTAM 3.375 G in DEXTROSE 5% WATER 50 ML IV SCH ×2 (07:38→16:18)
[2021-11-28 08:06] LABS: BASOPHILS % 0.3 % (0.0-2.0); EOSINOPHILS % 1.9 % (0.0-5.0); HEMATOCRIT. 28.8 % (36.0-48.0); HEMOGLOBIN. 9.4 g/dL (12.0-16.0); LYMPHOCYTES % 15.4 % (20.0-50.0); MEAN CORPUSCULAR HEMOGLOBIN 27.1 pg (28.0-32.0); MEAN CORPUSCULAR VOLUME 83.5 fL (81.0-99.0); MEAN PLATELET VOLUME 9.9 fl (7.4-10.4); MONOCYTES % 12.4 % (2.0-8.0); PLATELET 151 x1000/uL (130-400); RED BLOOD CELL COUNT 3.45 mill/uL (4.2-5.4); RED CELL DISTRIBUTION WIDTH 16.6 % (11.6-14.6)
[2021-11-28] MEDS: CARVEDILOL 12.5MG TABLET PO SCH ×3 (08:06→21:00)
[2021-11-28] MEDS: APIXABAN 5 MG TABLET PO SCH ×2 (08:06→17:32)
[2021-11-28 08:09] LABS: BG BASE EXCESS 2.2 mmol/L (-2.0-2.0); BG CARBOXYHEMOGLOBIN 0.2 % (0.5-1.5); BG DEOXYHEMOGLOBIN 5.7 % (0.0-5.0); BG HCO3 ACT 28.4 mmol/L (22.0-26.0); BG METHEMOGLOBIN 0.3 % (0.0-1.5); BG OXYGEN SATURATION 94.3 % (92.0-98.5); BG OXYHEMOGLOBIN 93.8 % (94.0-97.0); BG PCO2 52.1 mmHg (35.0-45.0); BG PH 7.355 (7.350-7.450); BG SAMPLE SITE RIGHT RADIAL; BG TOTAL HEMOGLOBIN 10.8 g/dL (12.0-18.0); BG VENT MODE VENT - CPAP
[2021-11-28] MEDS ORDERED: RACEPINEPHRINE 2.25% 0.5ML NEB VIAL HHN NR (11:15)
[2021-11-28] MEDS ORDERED: RACEPINEPHRINE 2.25% 0.5ML NEB VIAL HHN PRN (11:15)
[2021-11-28] MEDS ORDERED: METHYLPREDNISOLONE SOD SUCC 40 MG/ML VIAL IV NR (11:30)
[2021-11-28 11:49] LABS: BG BASE EXCESS -11.7 mmol/L (-2.0-2.0); BG CARBOXYHEMOGLOBIN 0.1 % (0.5-1.5); BG HCO3 ACT 16.5 mmol/L (22.0-26.0); BG METHEMOGLOBIN 0.2 % (0.0-1.5); BG OXYHEMOGLOBIN 95.7 % (94.0-97.0); BG PCO2 46.8 mmHg (35.0-45.0); BG PH 7.164 (7.350-7.450); BG PO2 105.2 mmHg (75.0-100.0); BG SAMPLE SITE RIGHT RADIAL; BG TOTAL HEMOGLOBIN 10.8 g/dL (12.0-18.0); BG VENT MODE HHN TX
[2021-11-28] MEDS ORDERED: SODIUM BICARBONATE 8.4% 1 MEQ/ML 50ML SYR IV NR (12:00)
[2021-11-28] MEDS: DILTIAZEM HCL 30MG TABLET PO SCH ×3 (12:00→17:42)
[2021-11-28] MEDS: PANTOPRAZOLE SODIUM 40 MG/VIAL IV SCH (12:01)
[2021-11-28] MEDS: VANCOMYCIN 1250MG in DEXTROSE 5% WATER 250ML IV SCH (14:49)
[2021-11-28] MEDS: SODIUM CHLORIDE 0.45% 1,000 ML IV SCH (14:50)
[2021-11-28] MEDS ORDERED: DILTIAZEM 125MG/125ML PMX 125 ML IV PRN (23:45)
[2021-11-29] VITALS (65 sets, daily range): BP systolic 83–170; BP diastolic 32–102
[2021-11-29] MEDS: ACETAMINOPHEN 325MG TABLET PO PRN (00:14)
[2021-11-29] MEDS: DILTIAZEM HCL 30MG TABLET PO SCH ×2 (00:14→05:52)
[2021-11-29] MEDS: IPRATROPIUM/ALBUTEROL 0.5-3(2.5)MG/3ML NEB HHN SCH ×4 (01:43→21:33)
[2021-11-29] MEDS ORDERED: RISPERIDONE 0.5MG TABLET NG NR (05:30)
[2021-11-29 06:15] LABS: BASOPHILS % 0.1 % (0.0-2.0); HEMATOCRIT. 29.2 % (36.0-48.0); HEMOGLOBIN. 9.3 g/dL (12.0-16.0); LYMPHOCYTES % 7.6 % (20.0-50.0); MEAN CORPUSCULAR HEMOGLOBIN 26.5 pg (28.0-32.0); MEAN PLATELET VOLUME 9.5 fl (7.4-10.4); MONOCYTES % 7.5 % (2.0-8.0); NEUTROPHILS % 84.8 % (40.0-76.0); PLATELET 155 x1000/uL (130-400); RED BLOOD CELL COUNT 3.51 mill/uL (4.2-5.4); RED CELL DISTRIBUTION WIDTH 16.4 % (11.6-14.6)
[2021-11-29 06:49] LABS: CHLORIDE 105 mEq/L (98-107)
[2021-11-29] MEDS: APIXABAN 5 MG TABLET PO SCH ×2 (08:48→17:26)
[2021-11-29] MEDS: PANTOPRAZOLE SODIUM 40 MG/VIAL IV SCH (08:48)
[2021-11-29] MEDS: CARVEDILOL 12.5MG TABLET PO SCH ×2 (08:49→21:46)
[2021-11-29] MEDS: DILTIAZEM HCL 60MG TABLET PO SCH ×3 (13:22→23:39)
[2021-11-29] MEDS: VANCOMYCIN 1250MG in DEXTROSE 5% WATER 250ML IV SCH (13:22)
[2021-11-30] VITALS (30 sets, daily range): BP systolic 97–140; BP diastolic 36–87
[2021-11-30] MEDS: IPRATROPIUM/ALBUTEROL 0.5-3(2.5)MG/3ML NEB HHN SCH ×3 (02:47→14:16)
[2021-11-30 05:19] LABS: BASOPHILS % 0.2 % (0.0-2.0); EOSINOPHILS % 1.5 % (0.0-5.0); HEMATOCRIT. 28.3 % (36.0-48.0); MEAN CORPUSCULAR HEMOGLOBIN 26.8 pg (28.0-32.0); MEAN CORPUSCULAR VOLUME 84.4 fL (81.0-99.0); MEAN PLATELET VOLUME 9.5 fl (7.4-10.4); MONOCYTES % 14.8 % (2.0-8.0); NEUTROPHILS % 67.5 % (40.0-76.0); PLATELET 183 x1000/uL (130-400); RED BLOOD CELL COUNT 3.35 mill/uL (4.2-5.4); RED CELL DISTRIBUTION WIDTH 16.3 % (11.6-14.6)
[2021-11-30 05:24] LABS: CHLORIDE 107 mEq/L (98-107)
[2021-11-30] MEDS: DILTIAZEM HCL 60MG TABLET PO SCH (06:40)
[2021-11-30] MEDS: PANTOPRAZOLE SODIUM 40 MG/VIAL IV SCH (08:02)
[2021-11-30] MEDS: APIXABAN 5 MG TABLET PO SCH ×2 (08:02→18:08)
[2021-11-30] MEDS: CARVEDILOL 12.5MG TABLET PO SCH ×2 (08:03→22:05)
[2021-11-30] MEDS: DILTIAZEM HCL 90MG TABLET PO SCH ×2 (12:26→18:07)
[2021-11-30] MEDS: ACETAMINOPHEN 325MG TABLET PO PRN (22:05)
[2021-11-30 22:08] LABS: BG CARBOXYHEMOGLOBIN 1.1 % (0.5-1.5); BG FRACTION INSPIRED OXYGEN 32; BG HCO3 ACT 34.3 mmol/L (22.0-26.0); BG METHEMOGLOBIN 0.1 % (0.0-1.5); BG OXYGEN SATURATION 93.9 % (92.0-98.5); BG OXYHEMOGLOBIN 92.8 % (94.0-97.0); BG PCO2 67.9 mmHg (35.0-45.0); BG PH 7.321 (7.350-7.450); BG PO2 74.1 mmHg (75.0-100.0); BG SAMPLE SITE RIGHT RADIAL; BG TOTAL HEMOGLOBIN 13.4 g/dL (12.0-18.0); BG VENT MODE NASAL CANNULA
[2021-11-30] MEDS ORDERED: IPRATROPIUM/ALBUTEROL 0.5-3(2.5)MG/3ML NEB HHN PRN (23:00)
[2021-12-01] VITALS: BP 108/43
[2021-12-01] MEDS: IPRATROPIUM/ALBUTEROL 0.5-3(2.5)MG/3ML NEB HHN SCH ×4 (01:41→21:20)
[2021-12-01 04:04] VITALS: BP 131/68
[2021-12-01] MEDS: DILTIAZEM HCL 90MG TABLET PO SCH ×4 (05:36→17:01)
[2021-12-01 07:14] LABS: HEMATOCRIT. 29.3 % (36.0-48.0); HEMOGLOBIN. 9.3 g/dL (12.0-16.0); MEAN CORPUSCULAR HEMOGLOBIN 26.8 pg (28.0-32.0); MEAN CORPUSCULAR VOLUME 84.6 fL (81.0-99.0); MEAN PLATELET VOLUME 9.2 fl (7.4-10.4); PLATELET 204 x1000/uL (130-400); RED BLOOD CELL COUNT 3.46 mill/uL (4.2-5.4); RED CELL DISTRIBUTION WIDTH 16.2 % (11.6-14.6)
[2021-12-01 07:35] LABS: CHLORIDE 105 mEq/L (98-107)
[2021-12-01 08:00] VITALS: BP 131/80
[2021-12-01] MEDS: APIXABAN 5 MG TABLET PO SCH ×2 (08:50→17:01)
[2021-12-01] MEDS: CARVEDILOL 12.5MG TABLET PO SCH ×2 (08:50→21:11)
[2021-12-01] MEDS: PANTOPRAZOLE SODIUM 40 MG/VIAL IV SCH (08:50)
[2021-12-01 12:00] VITALS: BP 101/62
[2021-12-01 13:57] LABS: NUCLEATED RED BLOOD CELLS 2 /100 WBC; PLATELET ESTIMATE NORMAL
[2021-12-01 16:00] VITALS: BP 122/72
[2021-12-01 20:00] VITALS: BP 125/69
[2021-12-02] VITALS: BP 108/76
[2021-12-02] MEDS: IPRATROPIUM/ALBUTEROL 0.5-3(2.5)MG/3ML NEB HHN SCH ×3 (02:33→13:38)
[2021-12-02 04:00] VITALS: BP 113/69
[2021-12-02] MEDS: DILTIAZEM HCL 90MG TABLET PO SCH ×3 (06:19→12:58)
[2021-12-02 08:00] VITALS: BP 92/58
[2021-12-02] MEDS: CARVEDILOL 12.5MG TABLET PO SCH (08:54)
[2021-12-02] MEDS: APIXABAN 5 MG TABLET PO SCH ×2 (09:22→17:29)
[2021-12-02 10:09] VITALS: BP 92/58
[2021-12-02] MEDS: PANTOPRAZOLE SODIUM 40 MG/VIAL IV SCH (11:00)
[2021-12-02 12:00] VITALS: BP 127/83
[2021-12-02 16:00] VITALS: BP 138/85
[2021-12-02 16:01] LABS: BG BASE EXCESS 6.3 mmol/L (-2.0-2.0); BG CARBOXYHEMOGLOBIN 0.3 % (0.5-1.5); BG DEOXYHEMOGLOBIN 11.5 % (0.0-5.0); BG FRACTION INSPIRED OXYGEN 21; BG HCO3 ACT 30.8 mmol/L (22.0-26.0); BG METHEMOGLOBIN 0.3 % (0.0-1.5); BG OXYGEN SATURATION 88.4 % (92.0-98.5); BG OXYHEMOGLOBIN 87.9 % (94.0-97.0); BG PCO2 44.4 mmHg (35.0-45.0); BG PH 7.459 (7.350-7.450); BG PO2 54.4 mmHg (75.0-100.0); BG SAMPLE SITE RIGHT RADIAL; BG TOTAL HEMOGLOBIN 10.1 g/dL (12.0-18.0); BG VENT MODE ROOM AIR
[2021-12-05] MEDS ORDERED: NITR0.4T49 SL (16:33)
== END 2021-12-02 18:45 | disposition home health service (06) | DRG 207 ==
LOC: ER 10:46 → EDBEDREQ 11:37 → MICUSO 13:22 → EDBEDREQ 13:41 → EDBEDREQSVC 11-23 09:02 → MICUSO 11-23 11:30 → 5WST 11-30 18:45
PROVIDERS: ADMIT Internal Medicine Pulmonary Disease; ATTEND Internal Medicine Pulmonary Disease
PROC: 5A1955Z Respiratory Ventilation, Greater than 96 Consecutive Hours (ICD-10-PCS; principal; 2021-11-23)
PROC: 5A12012 Performance of Cardiac Output, Single, Manual (ICD-10-PCS; 2021-11-23)
PROC: 0BH17EZ Insertion of Endotracheal Airway into Trachea, Via Natural or Artificial Opening (ICD-10-PCS; 2021-11-23)
PROC: B54BZZA Ultrasonography of Right Lower Extremity Veins, Guidance (ICD-10-PCS; 2021-11-23)
PROC: 06HY33Z Insertion of Infusion Device into Lower Vein, Percutaneous Approach (ICD-10-PCS; 2021-11-23)
PROC: 5A09357 Assistance with Respiratory Ventilation, Less than 24 Consecutive Hours, Continuous Positive Airway Pressure (ICD-10-PCS; 2021-11-28)
DX: J96.02 Acute respiratory failure with hypercapnia (principal); I46.9 Cardiac arrest, cause unspecified; J18.9 Pneumonia, unspecified organism; E87.2 Acidosis; I50.32 Chronic diastolic (congestive) heart failure; G45.9 Transient cerebral ischemic attack, unspecified; J44.0 Chronic obstructive pulmonary disease with (acute) lower respiratory infection; I48.0 Paroxysmal atrial fibrillation; D64.9 Anemia, unspecified; E03.9 Hypothyroidism, unspecified; I11.0 Hypertensive heart disease with heart failure; I27.20 Pulmonary hypertension, unspecified; I95.9 Hypotension, unspecified; Z20.822 Contact with and (suspected) exposure to COVID-19; I35.0 Nonrheumatic aortic (valve) stenosis; Z91.14 Patient's other noncompliance with medication regimen; Z99.81 Dependence on supplemental oxygen; Z79.01 Long term (current) use of anticoagulants; Z79.899 Other long term (current) drug therapy
CPT/HCPCS: 36415; 36600; 71045; 80048; 80053; 80061; 80202; 80305; 81003; 82330; 82375; 82533; 82550; 82805; 82962; 83605; 83735; 83880; 84100; 84443; 84484; 85025; 85027; 87426; 92610; 93005; 93306; 94002; 94003; 94640; 94660; 97110; 97116; 97162; 97166; 97530; 97535; 99285; C9113; J0330; J1160; J1265; J2250; J2370; J2405; J2543; J2704; J2920; J3010; J3370; J3490; J7030; J7050; J7060; A4315